=== PATIENT | male | born 2000 | race Caucasian/White ===

== ENCOUNTER 2021-01-13 13:36 | Emergency (ER) | payer OTHER ==
[2021-01-13] MEDS ORDERED: ERYTHROMYCIN O3.5 GM OU (13:57)
[2021-01-13] MEDS ORDERED: CEPHALEXIN500 MG PO (13:57)
== END 2021-01-13 14:19 | disposition home or self-care (01) ==
LOC: ER1 13:36
DX: H00.015 Hordeolum externum left lower eyelid (principal); L60.0 Ingrowing nail
CPT/HCPCS: 99283